=== PATIENT | female | born 1975 | race Caucasian/White ===

== ENCOUNTER → 2017-12-08 16:27 | Outpatient (CLI) | payer OTHER, SELFPAY ==
[2017-12-12 07:49] LABS: HPV HC, High Risk Negative (Negative)
== END ==
PROVIDERS: Visit Provider Obstetrics & Gynecology
DX: Z12.4 Encounter for screening for malignant neoplasm of cervix (principal)
CPT/HCPCS: 87624; 88175; G0145

== ENCOUNTER → 2019-01-21 16:43 | Outpatient (CLI) | payer OTHER, SELFPAY ==
[2019-01-26 14:56] LABS: Age Gdln ACOG Testing 30-65 (.)
[2019-01-26 15:37] LABS: HPV APTIMA, High Risk Negative (Negative); HPV Reflexed? YES, CHARGE PATIENT
== END ==
PROVIDERS: Visit Provider Obstetrics & Gynecology
DX: Z12.4 Encounter for screening for malignant neoplasm of cervix (principal)
CPT/HCPCS: 87624; 88175; G0145

== ENCOUNTER → 2020-01-23 | Outpatient (CLI) | payer OTHER, SELFPAY ==
[2020-01-30 04:39] LABS: HPV APTIMA, High Risk Negative (Negative)
== END | disposition home or self-care (01) ==
LOC: LABSPEC 15:20
PROVIDERS: Visit Provider Obstetrics & Gynecology
DX: Z12.4 Encounter for screening for malignant neoplasm of cervix (principal)
CPT/HCPCS: 87624; 88175; G0145

== ENCOUNTER → 2021-02-05 | Outpatient (CLI) | payer OTHER, SELFPAY ==
[2021-02-14 15:38] LABS: HPV APTIMA, High Risk Negative (Negative)
== END | disposition home or self-care (01) ==
LOC: LABSPEC 16:38
PROVIDERS: Visit Provider Obstetrics & Gynecology
DX: Z12.4 Encounter for screening for malignant neoplasm of cervix (principal)
CPT/HCPCS: 87624; 88175; G0145

== ENCOUNTER → 2022-04-11 | Outpatient (CLI) | payer OTHER, SELFPAY ==
[2022-04-19 04:07] LABS: HPV Genotype 16, Aptima Negative (Negative)
[2022-04-19 14:46] LABS: HPV APTIMA, High Risk Positive (Negative); HPV Genotype 18,45 Aptima Negative (Negative)
== END | disposition home or self-care (01) ==
LOC: LABSPEC 15:01
PROVIDERS: Visit Provider Obstetrics & Gynecology
DX: Z12.4 Encounter for screening for malignant neoplasm of cervix (principal)
CPT/HCPCS: 87624; 88175; G0145